=== PATIENT | male | born 1995 | race Hispanic/Latino ===

== ENCOUNTER 2020-02-21 09:34 | Emergency (ER) | payer SELFPAY ==
[2020-02-21 09:47] VITALS: BP 158/79
--- NOTE | 2020-02-21 10:01 | UC ---
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 He could not sleep last night but for 3 hours due to feeling unwell and for fear of having COVID. Although he is voiding normally, he is concerned that he has dehydration, and he has had a high fluid intake overnight. No alcohol used, no substances, drinks one cup of coffee in the morning. Normal stool today. He has no infectious contacts, goes from his hotel to his workplace where no one is ill. Body Shop Manager involved at the end of the visit to review his symptoms and to discuss the plan of action. - History of Current Complaint Chief Complaint: UCGI Stated Complaint: NAUSEA, STOMACH PAIN Time Seen by Provider: 02/21/20 09:46 Hx Obtained From: Patient Onset/Duration: Sudden Onset, Lasting Hours Severity Initially: Mild Severity Currently: Mild Pain Intensity: 0 Location: Epigastric Radiates: No Character: Cramping Aggravating Factor(s): Nothing Alleviating Factor(s): Nothing Associated Signs And Symptoms: Positive: Negative - Risk Factors Cardiac Risk Factors: Negative - Usually he has normal blood pressure - Allergies/Home Medications Allergies/Adverse Reactions: Allergies Allergy/AdvReac Type Severity Reaction Status Date / Time No Known Allergies Allergy Verified 02/21/20 09:39 Home Medications: Home Medications Ascorbic Acid TAB* [Vitamin C TAB*] 1,000 mg PO DAILY 02/21/20 [History Confirmed 02/21/20] Multivitamin [Multivitamins] 1 cap PO DAILY 02/21/20 [History Confirmed 02/21/20 ] PMH/Surg Hx/FS Hx/Imm Hx Previously Healthy: Yes - Surgical History Surgical History: None - Family History Known Family History: Positive: Unknown - Limited history due to language, and not obtained via social worker palliative care - Social History Occupation: Employed Full-time Lives: Alone - currently alone in a hotel room; has a and child in [place] Alcohol Use: None Substance Use Type: None Smoking Status (MU): Never Smoked Tobacco Review of Systems All Other Systems Reviewed And Are Negative: Yes Constitutional: Positive: Fatigue - due to lack of sleep Skin: Positive: Negative Eyes: Positive: Negative ENT: Positive: Negative. Negative: Sore Throat, Sinus Congestion Respiratory: Positive: Negative. Negative: Cough Cardiovascular: Positive: Negative Gastrointestinal: Positive: Abdominal Pain - epigastric discomfort, Nausea. Negative: Vomiting, Diarrhea Genitourinary: Positive: Negative Motor: Positive: Negative Neurovascular: Positive: Negative Musculoskeletal: Positive: Negative Neurological/Mental Status: Positive: Negative Psychological: Positive: Anxious Is Patient Immunocompromised?: No Physical Exam Triage Information Reviewed: Yes Appearance: Well-Appearing, Pain Distress - minimal; appears comfortable, speaks easily, mildly anxious Vital Signs: Initial Vital Signs Temp 98.3 F 02/21/20 09:40 Pulse 105 02/21/20 09:40 Resp 16 02/21/20 09:40 BP 158/79 02/21/20 09:40 Pulse Ox 98 02/21/20 09:40 Eye Exam: Normal ENT: Positive: Pharynx normal Neck: Positive: Supple, Nontender, No Lymphadenopathy Respiratory: Positive: Lungs clear, Normal breath sounds, No respiratory distress Cardiovascular: Positive: RRR, No Murmur Abdomen Description: Positive: No Organomegaly, Soft, Other: - mild epigastric tenderness without guarding or rebound. Negative: Distended, Guarding Bowel Sounds: Positive: Present Musculoskeletal Exam: Normal Neurological Exam: Normal Psychological Exam: Normal Skin Exam: Normal Abd Pain Male Course/Dx - Course Course Of Treatment: zofran as antinauseant; will go back to his hotel room and rest. Off work today. Discussed that he has no symptoms suggestive of COVID infection. lorazepam for anxiety x 1 dose. - Differential Dx/Clinical Impression Differential Diagnosis/HQI/PQRI: Appendicitis, Constipation, Gall Bladder Disease, Pancreatitis Provider Diagnosis: Indigestion, Situational anxiety Discharge ED - Sign-Out/Discharge Documenting (check all that apply): Patient Departure All imaging exams completed and their final reports reviewed: No Studies - Discharge Plan Condition: Stable Disposition: HOME Patient Education Materials: Indigestion (ED) Print Language: ITALIAN Forms: *Work Release Referrals: No Primary Care Phys,NOPCP [Primary Care Provider] - Additional Instructions: You have been given an antinauseant here, which will help to settle your stomach. Once at your hotel, take the dose of lorazepam. This will help you to relax and rest. Take lots of fluids as discussed, and eat lightly. Avoid fatty or fried foods. I suggest rice, soup, juices, tea today. - Billing Disposition and Condition Condition: STABLE Disposition: Home
[2020-02-21] MEDS ORDERED: Ondansetron ODT TAB* 4 MG PO ONE (10:04)
[2020-02-21] MEDS ORDERED: LORazepam TAB(*) 1 MG PO ONE (10:16)
== END 2020-02-21 10:41 | disposition home or self-care (01) ==
LOC: UCCORT 09:34
DX: K30 Functional dyspepsia (principal); F41.8 Other specified anxiety disorders; R11.0 Nausea; R53.83 Other fatigue
CPT/HCPCS: 99202; A9270-GY; G0463